=== PATIENT | female | born 1980 ===

== ENCOUNTER 2016-12-15 10:18 | Inpatient (IN) | payer SELFPAY ==
[2016-12-15 11:05] VITALS: BMI 28.9
[2016-12-15] MEDS ORDERED: Gentamicin 80 mg/2mL Inj. IVPB SCH (11:15)
[2016-12-15] MEDS ORDERED: SODIUM CHLORIDE 0.9% IVPB SCH (11:30)
[2016-12-15] MEDS ORDERED: GENTAMICIN IVPB SCH (11:30)
[2016-12-15] MEDS: Lactated Ringer's 1,000 ML IV SCH (11:30)
[2016-12-15 12:01] LABS: BASO % 0.2 % (0.0-2.0); EOS % 0.1 % (0.0-4.0); HEMATOCRIT 35.8 % (34.0-47.0); LYMPH # 0.9 K/uL (1.0-4.3); LYMPH % 6.2 % (20.0-40.0); MEAN CELL VOLUME 88.4 fl (81.0-99.0); MEAN CORPUSCULAR HEMOGLOBIN 28.8 pg (27.0-31.0); MEAN CORPUSCULAR HGB CONC 32.6 g/dL (33.0-37.0); MEAN PLATELET VOLUME 8.5 fl (7.2-11.7); MONO # 0.5 K/uL (0.0-0.8); MONO % 3.7 % (0.0-10.0); NEUT # 12.8 K/uL (1.8-7.0); NEUT % 89.8 % (50.0-75.0); PLATELET COUNT 283 K/uL (130-400); WHITE BLOOD COUNT 14.2 K/uL (4.8-10.8)
[2016-12-15 12:21] LABS: ALKALINE PHOSPHATASE 80 U/L (38-126); ALT/SGPT 30 U/L (9-52); AST/SGOT 33 U/L (14-36); BILIRUBIN,TOTAL 0.7 mg/dl (0.2-1.3); BLOOD UREA NITROGEN 8 mg/dl (7-17); CARBON DIOXIDE 23 mmol/L (22-30); CHLORIDE 104 mmol/L (98-107); GFR AFRICAN-AMERICAN > 60; GLUCOSE,RANDOM 87 mg/dL (65-105); POTASSIUM 4.1 MMOL/L (3.6-5.0); SODIUM 137 mmol/l (132-148); TOTAL PROTEIN 7.8 G/DL (6.3-8.2)
[2016-12-15] MEDS: Nalbuphine 20 mg/ml Inj (1 ml) IVP PRN ×2 (13:05→17:09)
[2016-12-15] MEDS: Ampicillin 2 GM in Sodium Chloride 0.9% 100 ML IVPB SCH (13:22)
[2016-12-15 13:28] LABS: NEUTROPHIL 89 % (42-75); TOTAL CELLS COUNTED 100
[2016-12-15 13:54] LABS: URINE BILIRUBIN SMALL (NEGATIVE); URINE BLOOD NEGATIVE (NEGATIVE); URINE COLOR AMBER (YELLOW); URINE GLUCOSE (UA) NEG (Normal); URINE KETONE NEGATIVE (NEGATIVE); URINE LEUKOCYTE ESTERASE TRACE Leu/uL (Negative); URINE PROTEIN 100 mg/dL (NEGATIVE); URINE UROBILINOGEN 0.2-1.0 mg/dL (0.2-1.0); WBC URINE 4 /hpf (0-5)
[2016-12-15] MEDS: Gentamicin 100mg/100ml NS 100 MG/100 ML BAG IVPB SCH (15:42)
[2016-12-15] MEDS ORDERED: Nalbuphine 20 mg/ml Inj (1 ml) IVP ONE (17:02)
[2016-12-15] MEDS ORDERED: Oxytocin 30 units/LR 500ML 30 U/500 ML BAG IV ONE ×2 (17:18→17:57)
[2016-12-16] MEDS: Lactated Ringer's 1,000 ML IV SCH ×4 (00:23→13:34)
[2016-12-16] MEDS: Ampicillin 2 GM in Sodium Chloride 0.9% 100 ML IVPB SCH ×3 (00:24→13:34)
[2016-12-16] MEDS: Gentamicin 100mg/100ml NS 100 MG/100 ML BAG IVPB SCH ×2 (05:42→13:34)
--- NOTE | 2016-12-16 07:59 | OBADHP ---
Datetime: 12/15/2016 12:56 Admit Comment, IP Provider: 36 y/o @ 21.3 weeks via LMP and 12 week u/s presents with a 1 day h istory of lower abdominal pain, dizziness, and watery discharge. Pt reports feeling healthy Thursday night but noticed cramping abdominal pain associated with light pink blood at 8:30am. Pain is 4/10, i ntertmittent, located in her lower abdomen, radiates to her lower back and is exacerbated with moveme nt. Denies alleviating factors. Reports being sexually active on Thursday night. Also reports increas ed urgency for urination. Denies fever/chills, headaches, visual disturbances, CP/SOB, N/V/D/C, dysur ia, pyuria, increased frequency. Reports +FM. PMD: Dr. Downs ([facility]) : pt reports being up todate and compliant with care, uneventful pregnacy thus far POBHx: SAB in 2015 @ 12 weeks, uncomplicated. 1 in 2000, FT, uncomplicated PMHx: none Meds: PNVs PsurgHx: none ALL: NKDA SocialHx: denies ETOH, drugs, tobacco abuse. A/P: 36 y/o @ 21.3 weeks via LMP/12 wk u/s admitted for labor/imminent demise. -admit to unit -CBC, CMP -Gentamycin 100mg Q8H -ampicillin 2gm Q6H -IV Fluids LR Mx @ 125 mls -NPO -Nubain for pain -pt seen and examined with Dr. Ranjith Brito MD PGY1 @ 11:11am [facility] ADDENDUM/Late entry: PT seen _ examined by me. Agree with above assessment. Note during course of admission and management it was discussed with patient that fetus was nonvia ble due to early gestational age. Datetime: 12/15/2016 11:11 Pelvic Type - PN: Adequate Extremities - PN: Normal Abdomen - PN: Normal Back - PN: Normal Breast - PN: Normal Lungs - PN: Normal Heart - PN: Normal Thyroid - PN: Normal Neurologic - PN: Normal HEENT - PN: Normal General - PN: Normal Presentation-Admit: Breech Membranes, Provider: Bulging Contraction Comments Provider: no Comments, ACOG Physical Exam: back: +left CVA tenderness Abd: soft, +BS, tenderness to palpation suprapubically : sterile speculum exam revealed cloudy, liquidy, nonodorous discharge. Bulging membanes. No ble eding. bedside u/s: footling breech as per Dr. Kasper Vital Signs Provider: Reviewed; Within Normal Limits IP Chief Complaint: Vaginal bleeding; Maternal discomfort Dilatation, Provider: 3 Genitourinary Exam: Normal DTRs - PN: Normal EGA AdmitDate IP: 21.3 IP Adm Impression: , intrauterine IP Admit Plan: Admit to unit; Initiate labor protocol; Initiate demise protocol
[2016-12-16 08:06] LABS: HEMATOCRIT 34.6 % (34.0-47.0); MEAN CELL VOLUME 88.8 fl (81.0-99.0); MEAN CORPUSCULAR HEMOGLOBIN 28.9 pg (27.0-31.0); MEAN CORPUSCULAR HGB CONC 32.6 g/dL (33.0-37.0); RED CELL DISTRIBUTION WIDTH 14.2 % (11.5-14.5); WHITE BLOOD COUNT 11.8 K/uL (4.8-10.8)
[2016-12-16 08:40] VITALS: BP 90/58; PULSE 60; RESP 20; TEMP 98; O2SAT 99
== END 2016-12-16 16:00 | disposition home or self-care (01) | DRG 379 ==
LOC: H.EROB2 10:18 → H.L&D 10:50 → H.EROB2 11:15 → H.MEDSURG1 21:10
PROVIDERS: ADMIT Obstetrics & Gynecology; ATTEND Obstetrics & Gynecology
PROC: 4A1HXCZ Monitoring of Products of Conception, Cardiac Rate, External Approach (ICD-10-PCS; principal; 2016-12-15)
DX: O60.02 Preterm labor without delivery, second trimester (principal); O32.8XX0 Maternal care for other malpresentation of fetus, not applicable or unspecified; O09.522 Supervision of elderly multigravida, second trimester; Z3A.21 21 weeks gestation of pregnancy

== ENCOUNTER 2018-02-28 10:23 | Emergency (ER) | payer OTHER, SELFPAY ==
[2018-02-28 10:24] VITALS: BMI 28.9
[2018-02-28 10:33] VITALS: TEMP 98.6
--- NOTE | 2018-02-28 11:42 | ED PDOC ---
HPI: Female Pain Time Seen by Provider: 02/28/18 10:27 Chief Complaint (Nursing): Female Genitourinary Chief Complaint (Provider): Pain in History Per: Patient Additional Complaint(s): 37 yo female, , presents to ED with c/o urinary frequency/burning, suprapubic pain that started today, denies vaginal bleeding, discharge. Pt reports she is currently ~ 3 - 4 weeks Past Medical History Reviewed: Nursing Documentation, Vital Signs Vital Signs: Last Vital Signs Temp 98.6 F 02/28/18 10:30 Pulse 93 H 02/28/18 10:30 Resp 20 02/28/18 10:30 BP 114/76 02/28/18 10:30 Pulse Ox 100 02/28/18 10:30 - Medical History PMH: No Chronic Diseases - Family History Family History: States: Unknown Family Hx - Living Arrangements Living Arrangements: With Family - Social History Current smoker - smoking cessation education provided: No Alcohol: None Drugs: Denies - Immunization History Hx Tetanus Toxoid Vaccination: No Hx Influenza Vaccination: No Hx Pneumococcal Vaccination: No - Home Medications Home Medications: Ambulatory Orders Medication Instructions Recorded Vit No.126/Iron/Folic 1 tab PO DAILY 12/15/16 [Prenavite] Nitrofurantoin Macrocrystals 100 mg PO BID #10 cap 02/28/18 [Macrobid] - Allergies Allergies/Adverse Reactions: Allergies Allergy/AdvReac Type Severity Reaction Status Date / Time No Known Allergies Allergy Verified 11/18/14 08:18 Review of Systems ROS Statement: Except As Marked, All Systems Reviewed And Found Negative Genitourinary Female: Positive for: Frequency Physical Exam - Reviewed Nursing Documentation Reviewed: Yes Vital Signs Reviewed: Yes - Physical Exam Appears: Positive for: Well, Non-toxic, No Acute Distress Head Exam: Positive for: ATRAUMATIC, NORMAL INSPECTION, NORMOCEPHALIC Skin: Positive for: Normal Color, Warm, DRY Eye Exam: Positive for: EOMI, Normal appearance, PERRL ENT: Positive for: Normal ENT Inspection Neck: Positive for: Normal, Painless ROM Cardiovascular/Chest: Positive for: Regular Rate, Rhythm Respiratory: Positive for: CNT, Normal Breath Sounds Gastrointestinal/Abdominal: Positive for: Normal Exam, Soft Back: Positive for: Normal Inspection Extremity: Positive for: Normal ROM Neurologic/Psych: Positive for: Alert, Oriented - Laboratory Results Result Diagrams: 02/28/18 12:09 - ECG O2 Sat by Pulse Oximetry: 100 Medical Decision Making Medical Decision Making: preg (+) Dip (-) blood, leuks or nites US: (+) 5 w 2 d gestational sac and yolk sac, no FHR. (+) Cystic structure on right Pt started on Macrobid for clinical UTI in advised to follow up with [facility], reports she is scheduled on 03/19/18. Advised to return to ED if at anytime condition worsens. Disposition - Clinical Impression Clinical Impression: Abdominal pain in , Threatened - Patient ED Disposition Is Patient to be Admitted: No - Disposition Disposition: Routine/Home Disposition Time: 14:43 Condition: STABLE Additional Instructions: return in 2 days for repeat Beta. if pain or bleeding worsen, return to ED immediately. Prescriptions: Nitrofurantoin Macrocrystals [Macrobid] 100 mg PO BID #10 cap Instructions: Threatened Miscarriage (DC) Forms: [facility] (Swiss) Print Language: VENEZUELAN
[2018-02-28 12:13] LABS: BASO # 0.1 K/uL (0.0-0.2); BASO % 0.6 % (0.0-2.0); EOS % 0.3 % (0.0-4.0); HEMOGLOBIN 13.5 g/dL (12.0-16.0); LYMPH % 11.3 % (20.0-40.0); MEAN CELL VOLUME 86.8 fl (81.0-99.0); MEAN CORPUSCULAR HEMOGLOBIN 29.1 pg (27.0-31.0); MEAN CORPUSCULAR HGB CONC 33.5 g/dL (33.0-37.0); MEAN PLATELET VOLUME 8.1 fl (7.2-11.7); MONO # 0.4 K/uL (0.0-0.8); MONO % 4.1 % (0.0-10.0); NEUT # 7.7 K/uL (1.8-7.0); NEUT % 83.7 % (50.0-75.0); NRBC % 0.1 % (0.0-0.0); RBC 4.63 Mil/uL (3.80-5.20); RED CELL DISTRIBUTION WIDTH 13.5 % (11.5-14.5); WHITE BLOOD COUNT 9.2 K/uL (4.8-10.8)
[2018-02-28 14:41] VITALS: BP 116/79; PULSE 72; RESP 19
[2018-02-28 14:43] VITALS: O2SAT 100
--- NOTE | 2018-02-28 15:37 | US ---
Date of service: 02/28/2018 PROCEDURE: HISTORY: pelvic pain, early preg COMPARISON: TECHNIQUE: FINDINGS: The uterus measures 8.2 x 4.0 x 6.2 centimeters. There is an intrauterine gestational sac corresponding to 5 weeks 2 days gestational age. There is a yolk sac present . There is a 2.2 centimeter right ovarian cyst. No pole is observed. IMPRESSION: No pole observed. Cannot exclude ectopic . Findings could represent early or blighted ovum. Recommend correlation with serial beta 8 levels and short-term interval follow-up.
== END 2018-02-28 14:43 | disposition home or self-care (01) ==
LOC: H.ER 10:23
DX: O20.0 Threatened abortion (principal); Z3A.01 Less than 8 weeks gestation of pregnancy

== ENCOUNTER 2018-08-17 11:39 | Emergency (ER) | payer SELFPAY ==
[2018-08-17 11:48] VITALS: BMI 30.4
[2018-08-17] MEDS ORDERED: Betamethasone Soluspan 30 mg/5mL Inj Susp IM ONE (12:23)
--- NOTE | 2018-08-17 14:33 | OBDCSUM ---
Datetime: 08/17/2018 13:07 Discharged to, Provider: Home Follow up at, Provider: [facility]IN Disch Instr Activity: Normal activity Disch Instr Diet: Regular Discharge Time: 08/17/2018 13:07 Follow up in weeks, Provider: 08/24/2018 Disch Referrals: None Discharge Diagnosis Prov Other: encounter for preventive care
--- NOTE | 2018-08-17 14:34 | OBHP ---
Datetime: 08/17/2018 13:30 IP Adm Impression: , intrauterine IP Admit Plan: Observation/Evaluation; Discharge home Admit Comment, IP Provider: 37-year-old at 30.0 weeks presents from [facility] for betamethasone sh ot (#1). Her cervical length was noted to be 2.5-2.6 today, decreased from the last measurment on lisandra e as per [facility]. Her last resulted in an at 21 weeks EGA and this she was g iven a cervical clevage and reports no other problems with thus far. She denies contraction s, abdominal pain, vaginal bleeding, malodorous vaginal discharge and a dimas of fluid from the vagina . OB: Dr. Pompa/ Dr. Patel PMH: denies OBHx: - 2 xSAB (2018 @ 21 EGA), cerclage placed this Meds: declines Family Hx: declines ROS: all other systems reviewed and negative unless otherwise noted in HPI. PE: comfortable, NAD CV: RRR Resp: no respiratory distress Ext: no edema Skin: no rash Abd: IUP, no tenderness to palpation -A+P: 37-year-old at 30.0 weeks presents from [facility] for betamethasone shot (#1). -NST reactive, Category I -Betamethasone 12mg IM given today -Follow-up for second injection tomorrow, 08/18 at approx 2pm recommended -ED precautions given Case seen and discussed with Dr Aston Jeffers PGY1 Addendum by Dr. Clancy: I have evaluated the patient independently and I agree with the above Pelvic Type - PN: Not Done Extremities - PN: Normal Abdomen - PN: Normal Back - PN: Normal Breast - PN: Not Done Lungs - PN: Normal Heart - PN: Not Done Thyroid - PN: Not Done Neurologic - PN: Not Done HEENT - PN: Normal General - PN: Normal FHR - Baseline A Provider: 120 EGA AdmitDate IP: 30.0 Vital Signs Provider: Reviewed; Within Normal Limits IP Chief Complaint: evaluation NICHD Variability Prov Fetus A: Moderate 6-25bpm NICHD Accel Fetus A IP Provider: [id number] FHR Category Provider Fetus A: Category I NICHD Decel Fetus A IP Provider: None Genitourinary Exam: Not Done DTRs - PN: Not Done
[2018-08-17 17:45] VITALS: BP 102/67; PULSE 87; RESP 18; TEMP 97.4; O2SAT 100
== END 2018-08-17 13:12 | disposition home or self-care (01) ==
LOC: H.EROB2 11:39
DX: O26.873 Cervical shortening, third trimester (principal); Z3A.30 30 weeks gestation of pregnancy; Z23 Encounter for immunization
CPT/HCPCS: 96372; 99281; J0702

== ENCOUNTER 2018-08-18 12:16 | Emergency (ER) | payer SELFPAY ==
[2018-08-18 12:19] VITALS: BMI 28.5
[2018-08-18] MEDS ORDERED: Betamethasone Soluspan 30 mg/5mL Inj Susp IM ONE (12:19)
[2018-08-18 19:12] VITALS: BP 108/71; PULSE 91
== END 2018-08-18 15:11 | disposition home or self-care (01) ==
LOC: H.EROB2 12:16 → H.L&D 12:17 → H.EROB2 15:11
DX: O26.873 Cervical shortening, third trimester (principal); Z3A.30 30 weeks gestation of pregnancy; Z23 Encounter for immunization
CPT/HCPCS: 96372; 99281; J0702

== ENCOUNTER 2018-10-07 11:29 | Emergency (ER) | payer SELFPAY ==
[2018-10-07 11:47] VITALS: BMI 31.6
--- NOTE | 2018-10-07 13:51 | OBHP ---
Datetime: 10/07/2018 11:46 IP Chief Complaint Other: cerclage removal IP Admit Plan: Observation/Evaluation; Discharge home IP Admit Plan Other: Remove cerclage Admit Comment, IP Provider: 37 37.2 EDC 10/31/18 by US present to [facility] for Cerclage removal by Dr Pompa. Patient have Cerclage due to 2 prev miscarraige one at 12 wk, and 21 wk. Otherwise yair ent have no complain. SHe denies contraction, bleeding or vaginal discharge ROS Pt + for Vomiting ( chronic since No change) otherwise all negative except mentioned in HPI. PCP Dr. Pompa Allergy none MED PNV PMH NONE OBGYM 2 miscarriage 1 at 12wk sec at 21. 1 normal vag delivery PSH none PFH none social denies smoke, drink drug use 11:52 Assessment and plan 37 present for cerclage removal monitoring stip Monitor vitals Remove cerclage 13:31 update Cerclage removed WIll place Nitrous oxide for pain Observe patient until 2:30 IF no labor patient can be discharged home Patient seen and examined by me. Cerclage removed successfully, see procedure note. Patient to be discharge home if no onset of labor and rtc in 1wk for care. Labor precautions given. --Dr. Pompa-Charito Pelvic Type - PN: Not Done Extremities - PN: Normal Abdomen - PN: Normal Back - PN: Normal Breast - PN: Not Done Lungs - PN: Normal Heart - PN: Normal Thyroid - PN: Normal Neurologic - PN: Normal HEENT - PN: Normal General - PN: Normal FHR - Baseline A Provider: 140 Comments, ACOG Physical Exam: No acute distress heart s1 s2, no extra heart sound lung clear abd nontender, BS + Gestation - Est Wks by US: 37.2 Vital Signs Provider: Reviewed; Within Normal Limits NICHD Variability Prov Fetus A: Moderate 6-25bpm NICHD Accel Fetus A IP Provider: [id number] FHR Category Provider Fetus A: Category I NICHD Decel Fetus A IP Provider: None Genitourinary Exam: Normal Datetime: 08/17/2018 13:30 EGA AdmitDate IP: 30.0
[2018-10-07 20:08] VITALS: BP 101/72; PULSE 74; RESP 18; TEMP 98.1; O2SAT 100
--- NOTE | 2018-10-08 04:17 | OP ---
PROCEDURE DATE: 10/07/2018 PREOPERATIVE DIAGNOSIS: A 36 and [address] in place. POSTOPERATIVE DIAGNOSIS: A 36 and [address] in [address]. PROCEDURE: Removal of Lamb's cervical cerclage. SURGEON: Armaan Naqvi MD ANESTHESIA: Nitrous oxide. INCISIONS: None. ESTIMATED BLOOD LOSS: Minimal. SPECIMENS: None. SPONGE COUNT: Correct. COMPLICATIONS: None. FINDINGS: The uterus was consistent with 37 weeks . The knot of the cerclage were seen x2. Using retractors and a Brigitte clamp, the knots were seen and exposed. The cervix was long, thick, and closed. Post procedure, the patient was in the LDR room and was given nitrous oxide as she was uncomfortable with the vaginal exam. The patient was placed in the dorsal lithotomy position. She was then prepped using Betadine. A bivalve speculum was then placed in the vagina and the anterior lip of the cervix was well visualized. The cervix was then maneuvered to identify and track down the knot of the cerclage x2. A Brigitte clamp was then used to grab the cerclage and elevated to expose it enough to cut the cerclage just lateral to the knot. This was done x2 and the cerclage was removed by applying gentle traction. Both sutures appeared intact after removal. A small amount of bleeding was noted from the area and this was stopped with pressure of a sponge stick after application for several minutes. Excellent hemostasis was observed. All instruments were then removed from the vagina. The cervix was manually checked and found to be long and closed. The patient was returned to supine position. She was clean and monitored for one hour. As the patient was not in labor, she was discharged home with labor instructions and informed to followup as scheduled in the clinic in one week. Armaan Naqvi MD
== END 2018-10-07 14:50 | disposition home or self-care (01) ==
LOC: H.EROB2 11:29 → H.L&D 11:31 → H.EROB2 14:50
DX: O26.873 Cervical shortening, third trimester (principal); Z3A.37 37 weeks gestation of pregnancy; O09.93 Supervision of high risk pregnancy, unspecified, third trimester; O21.0 Mild hyperemesis gravidarum

== ENCOUNTER 2018-10-22 05:43 | Inpatient (IN) | payer MEDICAID, SELFPAY ==
[2018-10-22 06:43] VITALS: BMI 30.6
[2018-10-22] MEDS ORDERED: Lactated Ringer's 1,000 ML IV ONE ×2 (06:43)
[2018-10-22] MEDS ORDERED: Oxytocin 30 UNIT in NS 500 ml 30 UNITS/500 ML BAG IV ONE (06:44)
[2018-10-22] MEDS ORDERED: OXYTOCIN/0.9 % NS 20 UNIT/1,000 ML BAG IV SCH (06:45)
[2018-10-22 07:46] LABS: BASO # 0.1 K/uL (0.0-0.2); BASO % 0.6 % (0.0-2.0); EOS % 0.2 % (0.0-4.0); HEMOGLOBIN 11.3 g/dL (12.0-16.0); LYMPH # 1.5 K/uL (1.0-4.3); LYMPH % 16.4 % (20.0-40.0); MEAN CELL VOLUME 84.9 fl (81.0-99.0); MEAN PLATELET VOLUME 9.6 fl (7.2-11.7); MONO # 0.4 K/uL (0.0-0.8); MONO % 4.8 % (0.0-10.0); NEUT # 7.3 K/uL (1.8-7.0); NRBC % 0.1 % (0.0-0.0); RBC 4.03 Mil/uL (3.80-5.20); RED CELL DISTRIBUTION WIDTH 14.6 % (11.5-14.5); WHITE BLOOD COUNT 9.3 K/uL (4.8-10.8)
[2018-10-22] MEDS ORDERED: Fentanyl/Bupivacaine HCl 250 ML EPI ONE (08:04)
[2018-10-22] MEDS ORDERED: Bupivacaine HCl 0.5% PF (30 ml) Inj ONE (08:09)
--- NOTE | 2018-10-22 08:46 | OBADHP ---
Datetime: 10/22/2018 06:39 Admit Comment, IP Provider: 37 39.3 present to [facility] due to contraction. Patient report contr action started on 10/22/18 @ 4:30. She state that she had some fluid discharge but no watergush, or v ag bleeding. Otherwise patient have no complains. She had cerclage placed during her but wa s removed by Dr Pompa on 10/07/18. No other complication during . ROS neg except mentioned in HPI. PCP Dr. Pompa Allergy none MED PNV PMH NONE OBGYM 2 miscarriage 1 at 12wk sec at 21. 1 normal vag delivery PSH none PFH none social denies smoke, drink drug use Assessment and plan 37 39.3 present to [facility] due to contraction. Patient report contraction started on 10/22/18 @ 4:30. Will be admitted to unit for vag delivery strip reactive Monitor vitals Contraction q2-3min Cervix 3,90.-2 US baby head down Baby vertex. Start LR 1 L at 999 Start LR 1 L at 125 Pit for after placenta delivery Anesthesia on case Initiate labor protocol Ysabri PGY1 Case discussed with Dr Real Pelvic Type - PN: Adequate Extremities - PN: Normal Abdomen - PN: Normal Back - PN: Normal Breast - PN: Not Done Lungs - PN: Normal Heart - PN: Normal Thyroid - PN: Normal Neurologic - PN: Normal HEENT - PN: Normal General - PN: Normal Presentation-Admit: Vertex FHR - Baseline A Provider: 135 Comments, ACOG Physical Exam: Heart no extra heart sound lung clear abd non-tender BS+ cervix 3,90,-2 Gestation - Est Wks by US: 39.3 IP Chief Complaint: Uterine contractions NICHD Accel Fetus A IP Provider: 15X15 FHR Category Provider Fetus A: Category I NICHD Decel Fetus A IP Provider: None Dilatation, Provider: 3 Effacement, Provider: 90 Station, Provider: -2 Genitourinary Exam: Normal DTRs - PN: Normal EGA AdmitDate IP: 39.3 IP Adm Impression: Term, intrauterine ; Intact Membranes IP Admit Plan: Admit to unit; Initiate labor protocol Datetime: 10/22/2018 06:15 NICHD Variability Prov Fetus A: Moderate 6-25bpm Datetime: 10/07/2018 11:46 IP Chief Complaint Other: cerclage removal IP Admit Plan Other: Remove cerclage Vital Signs Provider: Reviewed; Within Normal Limits
[2018-10-22] MEDS ORDERED: Benzocaine/Menthol SPRAY TOP PRN ×2 (10:33→12:41)
[2018-10-22] MEDS ORDERED: Oxycodone/Acetaminophen 5/325 mg Tab PO PRN ×4 (10:33→12:41)
--- NOTE | 2018-10-22 10:39 | OBDS ---
DELIVERY PERSONNEL Delivery Doctor: Jeniffer Clancy MD Vp Client Services: Elaine Vergara RN Anesthesiologist: Dr Wolfe MATERNAL INFORMATION Delivery Anesthesia: Epidural Placenta Cultured: No Maternal Complications: None Provider Comments: of live male over intact perineum, followed by shoulders and rest of infant atraumatically, loose nuchal cord, MARTHA presentation, mouth and nose suctioned on abdomen, cord clamped and cut, infant kept on mother's chest, placenta delivered spontaneously, fundus firm, first degree laceration repaired with 3-0 vicryl rapide, EBL = 25mL, pt tolerated procedure LABOR SUMMARY EDC: 10/26/2018 00:00 No. Babies in Womb: 1 Labor Anesthesia: Epidural LABOR INFORMATION Reason for Induction: Not Applicable Onset of Labor: 10/22/2018 02:00 Complete Dilatation: 10/22/2018 08:15 Group B Beta Strep: Negative Steroids Given: None Reason Steroids Not Administered: Not Applicable MEMBRANES Membranes Rupture Method: Artificial Rupture of Membranes: 10/22/2018 08:46 Length of Rupture (hrs): 0.37 Amniotic Fluid Color: Clear Amniotic Fluid Amount: None Amniotic Fluid Odor: Normal STAGES OF LABOR Stage 1 hrs: 6 Stage 1 min: 15 Stage 2 hrs: 0 Stage 2 min: 53 Stage 3 hrs: 0 Stage 3 min: 3 Total Time in Labor hrs: 7 Total Time in Labor min: 11 BABY A INFORMATION Delivery Date/Time: 10/22/2018 09:08 Method of Delivery: Vaginal Born in Route : No : N/A Forceps: N/A Vacuum Extraction: N/A Shoulder Dystocia : No SHOULDER DYSTOCIA BABY A Infant Delivery Date/Time: 10/22/2018 09:08 PRESENTATION/POSITION BABY A Presentation: Cephalic PLACENTA INFORMATION BABY A Placenta Delivery Time : 10/22/2018 09:11 Placenta Method of Delivery: Spontaneous Placenta Status: Delivered INFANT INFORMATION BABY A Gestational Age at Delivery: 39.3 Gestational Status: Term Outcome : Liveborn Infant Condition : Stable Sex: Male IDENTIFICATION/MEDS BABY A ID Band Number: [id number] CORD INFORMATION BABY A No. Cord Vessels: 3 Cord Blood Taken: Yes Suction: Mouth
[2018-10-23 09:31] LABS: MEAN CELL VOLUME 85.5 fl (81.0-99.0); MEAN CORPUSCULAR HEMOGLOBIN 28.3 pg (27.0-31.0); MEAN CORPUSCULAR HGB CONC 33.1 g/dL (33.0-37.0); RBC 3.23 Mil/uL (3.80-5.20); RED CELL DISTRIBUTION WIDTH 14.6 % (11.5-14.5); WHITE BLOOD COUNT 8.5 K/uL (4.8-10.8)
[2018-10-23 09:48] LABS: HEMOGLOBIN 9.1 g/dL (12.0-16.0)
--- NOTE | 2018-10-23 10:15 | OBPPN ---
Datetime: 10/23/2018 08:00 PP Pain Prov: Within normal limits PP Nausea Prov: Denies PP Flatus Prov: Yes PP BM Prov: No PP Breasts Prov: Not Done PP Heart Prov: Normal PP Lungs Prov: Normal PP Abdomen/Uterus Prov: Normal PP Lochia Prov: Not Done PP Vulva/Perineum Prov: Not Done PP Extremities Prov: Normal PP Impression Prov: Normal progression PP Plan Prov: Continue present management PP Progress Note Prov: Patient seen and examined this AM, she is s/p NVD PPD1. Patient states feelin g well, is getting OOB and eating regular diet, lower abdominal pain is appropiate after PP. Patient denies THOMPSON, dizziness, CP, N/V, dysuria, fever. Lochia like menses in volume. She is w/o diffculties. PE GEN: VS wNL. Abdomen: BS+, appropriate tenderness to palpation. Uterus is firm and at the level of the umbilicu s. Appropriate tenderness EXT: Phu's negative NEURO/PSYCH: AAOx3, no grossly focal deficits, preserved affect and mood. A/P 38 at GA 39.3, now s/p with normal progression PPD1. -encouraged ambulation -Motrin 600mg po q6h for pain as per pain scale -Senakot 17.2mg po QHS -Encourage -Continue vit -plan D/C 10/24 Case reviewed and discussed with attending MD Carolina PGY1 Addendum by Dr. Clancy: I have evaluated the patient independently and I agree with the above Vital Signs Provider PP: Reviewed; Within Normal Limits
--- NOTE | 2018-10-24 12:40 | OBPPN ---
Datetime: 10/24/2018 07:23 PP Pain Prov: Within normal limits PP Nausea Prov: Denies PP Flatus Prov: Yes PP BM Prov: No PP Breasts Prov: Normal PP Heart Prov: Normal PP Lungs Prov: Normal PP Abdomen/Uterus Prov: Normal PP Lochia Prov: Normal PP Vulva/Perineum Prov: Not Done PP CVA Tenderness Prov: Not Done PP Extremities Prov: Normal PP C/S Incision Prov: Not Applicable PP Progress Prov: Normal PP Impression Prov: Normal progression PP Plan Prov: Continue present management PP Progress Note Prov: Pt is a 38 YO , PPD 2 s/p on 10/22/18. Seen and examined at [facility] e No complain as per today. Pt pain improved. Ambulate without difficulties Pt is breast and bottle f eeding, she is tolerating regular diet. Lochia less than menses in volume. +Flatus, -BM. Denies fever s, chills, dizziness, chest pain, SOB, N/V/D, hematuria or dysuria. VS: Vitals WNL Gen: NAD HEENT: NCAT Cardio: + S1S2, RRR Lungs: CTA B/L, no wheezes Abd: soft, appropriate tenderness to palpation, + BS, Uterus firm below level of umbilicus Ext: No edema, calves non tender Assessment: 38 YO s/p PPD 2, with normal progression. Plan: - and ambulation encouraged. - Ibuprofen 600 mg 1 tab Q 6h PRN mild pain -Continue vitamin -DC plan today Case discussed with attending MD Carmelita PGY1 Addenudum by Dr. chavarria: I have evaluated the patient independently and I agree with all the above IP PP Procedures: None Vital Signs Provider PP: Reviewed; Within Normal Limits
--- NOTE | 2018-10-24 12:43 | OBDCSUM ---
Datetime: 10/24/2018 07:25 Discharged to, Provider: Home Follow up at, Provider: [facility] Disch Instr Activity: Normal activity; May Shower Disch Instr Diet: Regular Discharge Instructions, Provider: Routine instructions given Discharge Diagnosis, Provider: Term Delivered Discharge Time: 10/24/2018 12:40 Follow up in weeks, Provider: 4-6 weeks Disch Activity Restrictions: No exercising; No sexual activity; Nothing in vagina - [place], [place] Discharge Comment, Provider: 38 y/o s/p NVD of a viable baby male on 10/22/18 with EGA: 39.3 weeks. EBL 25 mL. : Male, 2965gm Apgars 9/9 Post- D/C Summary: Patient tolerated delivery and post- well. Lochia less than menses in volume. Pt able to pass gas, ambulate and pass urine. Tolerate regular diet, no THOMPSON, CP, SOB, N/V, fever or other acute complaint at this time. Fundus firm below umbilicus level. Pt is hemodynamically stable. H/H : aCBC: 11.3/34.2 pCBC: 9.1/27.6 Discharge Instructions given to patient: Encourage breast feeding PNV 1 tab PO daily May take Ibuprofen 600mg Q 6h prn for mild-mod pain if needed ED precautions: If excessive bleeding, pain that does not get relief, fever >100.4, palpitations, SOB, CP or other concerning symptom go to the ED PT was urged if feeling sad, mood swing, depression, neglect of baby, suicidal thoughts, homicidal thoughts go to ER or call 911 for help Pt should go to her Primary care doctor if experiencing difficulty with breast feeding F/U in 4-6 week for PP visit with your PMD. Ramseyitish PGY1 Case discussed with Attending Contraception after Delivery: Undecided
[2018-10-24 19:46] VITALS: BP 125/76; PULSE 55; RESP 18; TEMP 98.1; O2SAT 100
== END 2018-10-24 14:52 | disposition home or self-care (01) | DRG 560 ==
LOC: H.EROB2 05:43 → H.L&D 06:43 → H.OB/GYN 12:31
PROVIDERS: ADMIT Obstetrics & Gynecology; ATTEND Obstetrics & Gynecology
PROC: 10E0XZZ Delivery of Products of Conception, External Approach (ICD-10-PCS; principal; 2018-10-22)
PROC: 0HQ9XZZ Repair Perineum Skin, External Approach (ICD-10-PCS; 2018-10-22)
PROC: 4A1HXCZ Monitoring of Products of Conception, Cardiac Rate, External Approach (ICD-10-PCS; 2018-10-22)
DX: O70.0 First degree perineal laceration during delivery (principal); Z37.0 Single live birth; Z3A.39 39 weeks gestation of pregnancy